=== PATIENT | female | born 1955 | race Caucasian/White ===

== ENCOUNTER → 2018-02-09 13:02 | Outpatient (CLI) | payer BC, SELFPAY ==
[2018-02-09 14:36] LABS: Absolute Lymphocyte Count 2.23 X10^3/ul (0.83-4.51); Absolute Neutrophil Count 4.4 X10^3/uL (2.0-7.7); Basophil# 0.05 X10^3/uL; Basophil% 0.7 % (0-1); Eosinophil# 0.08 X10^3/uL; Eosinophils% 1.1 % (0-5); Hematocrit 41.6 % (37-47); Hemoglobin 13.5 g/dl (12.0-15.0); Lymphocyte # 2.23 X10^3/ul (4.0); Lymphocyte % 30.2 % (19-41); Mean Corp Hgb Conc 32.5 g/gl (32-36); Mean Corpuscular Hgb 31.8 pg (27.0-32.0); Mean Corpuscular Volume 97.9 fL (81-99); Mean Platelet Vol. 12.1 fl (6.2-12.0); Monocyte# 0.58 X10^3/uL; Monocyte% 7.9 % (0-10); Neutrophil # 4.43 X10^3/uL (2.7-7.7); Platelet Count 230 K/mm3 (150-450); RBC Distribution Width CV 12.4 % (11.6-14.6); RBC Distribution Width SD 43.5 fl (35.1-43.9); Red Blood Count 4.25 M/mm3 (4.2-5.4); White Blood Count 7.4 K/mm3 (4.4-11.0)
[2018-02-09 14:39] LABS: POSITIVE COUNT NO; POSITIVE DIFFERENTIAL NO; POSITIVE MORPHOLOGY NO
[2018-02-09 14:50] LABS: ALB/GLOB Ratio 1.1 RATIO (0.9-2.4); AST(SGOT) 37 U/L (15-37); Alanine Aminotransfer ALT/SGPT 44 U/L (13-56); Alkaline Phosphatase 88 U/L (45-117); Anion Gap 10 (5-15); BUN 24 mg/dL (7-18); BUN/Creat Ratio 26.8 RATIO (10-20); Calcium,Total 8.9 mg/dL (8.5-10.1); Chloride 100 mmol/L (98-107); EST Glomerular Filtration Rate 68 mL/min (>60); Est Glom Filt Rate - Afr Amer 82 mL/min (>60); Globulin 3.6 g/dL (2.2-4.2); Glucose 90 mg/dL (74-106); Potassium 4.1 mmol/L (3.5-5.1); Protein, Total 7.6 g/dL (6.4-8.2); Sodium Level 137 mmol/L (136-145); Thyroid Stim Hormone (TSH) 1.88 uIU/mL (0.358-3.74)
[2018-02-10 09:22] LABS: Hep C Antibodies <0.1 s/co ratio (0.0-0.9)
== END ==
PROVIDERS: Family Provider Family Medicine Geriatric Medicine; PCP Family Medicine Geriatric Medicine; Visit Provider Family Medicine Geriatric Medicine
DX: R53.83 Other fatigue (principal); Z13.89 Encounter for screening for other disorder
CPT/HCPCS: 36415; 80053; 84443; 85025; 86803

== ENCOUNTER → 2018-08-13 09:24 | Outpatient (CLI) | payer BC, SELFPAY ==
[2018-08-13 12:28] LABS: Absolute Lymphocyte Count 2.15 X10^3/ul (0.83-4.51); Absolute Neutrophil Count 3.6 X10^3/uL (2.0-7.7); Basophil# 0.06 X10^3/uL; Basophil% 0.9 % (0-1); Eosinophil# 0.13 X10^3/uL; Hematocrit 41.4 % (37-47); Hemoglobin 13.4 g/dl (12.0-15.0); Lymphocyte # 2.15 X10^3/ul (4.0); Lymphocyte % 33.8 % (19-41); Mean Corp Hgb Conc 32.4 g/gl (32-36); Mean Corpuscular Hgb 32.4 pg (27.0-32.0); Mean Platelet Vol. 11.9 fl (6.2-12.0); Monocyte# 0.43 X10^3/uL; Monocyte% 6.8 % (0-10); Neutrophil # 3.58 X10^3/uL (2.7-7.7); Neutrophil % 56.3 % (47-70); Platelet Count 221 K/mm3 (150-450); RBC Distribution Width CV 12.4 % (11.6-14.6); RBC Distribution Width SD 44.9 fl (35.1-43.9); Red Blood Count 4.14 M/mm3 (4.2-5.4); White Blood Count 6.4 K/mm3 (4.4-11.0)
[2018-08-13 12:34] LABS: POSITIVE COUNT NO; POSITIVE DIFFERENTIAL NO; POSITIVE MORPHOLOGY NO
[2018-08-13 12:50] LABS: ALB/GLOB Ratio 1.1 RATIO (0.9-2.4); AST(SGOT) 35 U/L (15-37); Alanine Aminotransfer ALT/SGPT 52 U/L (13-56); Albumin, Serum 3.9 g/dL (3.2-5.0); Alkaline Phosphatase 83 U/L (45-117); Anion Gap 11 (5-15); BUN 21 mg/dL (7-18); Calcium,Total 8.7 mg/dL (8.5-10.1); Chloride 103 mmol/L (98-107); Creatinine, Serum 0.95 mg/dL (0.55-1.02); EST Glomerular Filtration Rate 63 mL/min (>60); Est Glom Filt Rate - Afr Amer 76 mL/min (>60); Globulin 3.5 g/dL (2.2-4.2); Glucose 89 mg/dL (74-106); Potassium 4.4 mmol/L (3.5-5.1); Protein, Total 7.4 g/dL (6.4-8.2); Sodium Level 140 mmol/L (136-145); Thyroid Stim Hormone (TSH) 1.51 uIU/mL (0.358-3.74)
== END ==
PROVIDERS: Family Provider Family Medicine Geriatric Medicine; PCP Family Medicine Geriatric Medicine; Visit Provider Family Medicine Geriatric Medicine
DX: I10 Essential (primary) hypertension (principal)
CPT/HCPCS: 36415; 80053; 84443; 85025

== ENCOUNTER → 2019-02-23 | Outpatient (CLI) | payer BC, SELFPAY ==
[2019-02-23 12:53] LABS: Absolute Neutrophil Count 4.1 X10^3/uL (2.0-7.7); Basophil# 0.03 X10^3/uL; Basophil% 0.4 % (0-1); Eosinophil# 0.09 X10^3/uL; Eosinophils% 1.3 % (0-5); Hematocrit 41.8 % (37-47); Hemoglobin 13.7 g/dl (12.0-15.0); Lymphocyte % 32.9 % (19-41); Mean Corp Hgb Conc 32.8 g/gl (32-36); Mean Corpuscular Hgb 32.6 pg (27.0-32.0); Mean Corpuscular Volume 99.5 fL (81-99); Mean Platelet Vol. 11.5 fl (6.2-12.0); Monocyte# 0.42 X10^3/uL; Neutrophil # 4.14 X10^3/uL (2.7-7.7); Neutrophil % 59.3 % (47-70); Platelet Count 245 K/mm3 (150-450); RBC Distribution Width CV 12.7 % (11.6-14.6); RBC Distribution Width SD 46.4 fl (35.1-43.9)
[2019-02-23 13:00] LABS: POSITIVE COUNT NO; POSITIVE DIFFERENTIAL NO; POSITIVE MORPHOLOGY NO
[2019-02-23 13:07] LABS: ALB/GLOB Ratio 1.1 RATIO (0.9-2.4); AST(SGOT) 35 U/L (15-37); Alanine Aminotransfer ALT/SGPT 42 U/L (13-56); Alkaline Phosphatase 92 U/L (45-117); Anion Gap 8 (5-15); BUN 25 mg/dL (7-18); BUN/Creat Ratio 29.1 RATIO (10-20); Chloride 102 mmol/L (98-107); Creatinine, Serum 0.86 mg/dL (0.55-1.02); EST Glomerular Filtration Rate 71 mL/min (>60); Est Glom Filt Rate - Afr Amer 86 mL/min (>60); Globulin 3.5 g/dL (2.2-4.2); Glucose 88 mg/dL (74-106); Potassium 4.3 mmol/L (3.5-5.1); Protein, Total 7.5 g/dL (6.4-8.2); Sodium Level 137 mmol/L (136-145); Thyroid Stim Hormone (TSH) 1.31 uIU/mL (0.358-3.74)
== END | disposition home or self-care (01) ==
LOC: POLAB3 08:53
PROVIDERS: Family Provider Family Medicine Geriatric Medicine; PCP Family Medicine Geriatric Medicine; Visit Provider Family Medicine Geriatric Medicine
DX: R53.83 Other fatigue (principal)
CPT/HCPCS: 36415; 80053; 84443; 85025

== ENCOUNTER → 2019-08-24 10:58 | Outpatient (CLI) | payer BC, SELFPAY ==
[2019-08-24 12:26] LABS: Absolute Lymphocyte Count 2.36 X10^3/uL (0.83-4.51); Absolute Neutrophil Count 4.8 X10^3/uL (2.0-7.7); Basophil# 0.07 X10^3/uL; Basophil% 0.9 % (0-1); Eosinophil# 0.07 X10^3/uL; Eosinophils% 0.9 % (0-5); Hematocrit 43.4 % (37-47); Hemoglobin 14.2 g/dL (12.0-15.0); Lymphocyte # 2.36 X10^3/ul (4.0); Lymphocyte % 29.5 % (19-41); Mean Corp Hgb Conc 32.7 g/dL (32-36); Mean Corpuscular Hgb 33.3 pg (27.0-32.0); Mean Corpuscular Volume 101.6 fL (81-99); Mean Platelet Vol. 11.6 fl (6.2-12.0); Monocyte# 0.65 X10^3/uL; Monocyte% 8.1 % (0-10); NRBC Flagged by Analyzer 0 % (0-5); Neutrophil # 4.81 X10^3/uL (2.7-7.7); Neutrophil % 60.2 % (47-70); Platelet Count 253 K/mm3 (150-450); RBC Distribution Width SD 44.7 fl (35.1-43.9); Red Blood Count 4.27 M/mm3 (4.2-5.4)
[2019-08-24 12:48] LABS: ALB/GLOB Ratio 1.1 RATIO (0.9-2.4); AST(SGOT) 32 U/L (15-37); Alanine Aminotransfer ALT/SGPT 40 U/L (13-56); Albumin, Serum 4.1 g/dL (3.2-5.0); Alkaline Phosphatase 101 U/L (45-117); Anion Gap 9 (5-15); BUN 22 mg/dL (7-18); BUN/Creat Ratio 23.7 RATIO (10-20); Calcium,Total 9.3 mg/dL (8.5-10.1); Chloride 100 mmol/L (98-107); Creatinine, Serum 0.93 mg/dL (0.55-1.02); EST Glomerular Filtration Rate 65 mL/min (>60); Est Glom Filt Rate - Afr Amer 78 mL/min (>60); Globulin 3.8 g/dL (2.2-4.2); Glucose 94 mg/dL (74-106); Potassium 4.5 mmol/L (3.5-5.1); Protein, Total 7.9 g/dL (6.4-8.2); Sodium Level 137 mmol/L (136-145); Thyroid Stim Hormone (TSH) 1.28 uIU/mL (0.358-3.74)
[2019-08-24 12:49] LABS: Vitamin D,25 Hydroxy 36.6 ng/mL (29.95-100.01)
== END ==
PROVIDERS: Family Provider Family Medicine Geriatric Medicine; PCP Family Medicine Geriatric Medicine; Visit Provider Family Medicine Geriatric Medicine
DX: E55.9 Vitamin D deficiency, unspecified (principal); I10 Essential (primary) hypertension
CPT/HCPCS: 36415; 80053; 82306; 84443; 85025

== ENCOUNTER → 2019-10-04 16:13 | Outpatient (CLI) | payer BC, SELFPAY | PROVIDERS: Family Provider Family Medicine Geriatric Medicine; PCP Family Medicine Geriatric Medicine; Referring Provider Family Medicine Geriatric Medicine; Visit Provider Family Medicine Geriatric Medicine | DX: R50.9 Fever, unspecified (principal) | CPT/HCPCS: 87633 ==

== ENCOUNTER → 2020-02-25 | Outpatient (CLI) | payer BC, SELFPAY ==
[2020-02-25 12:50] LABS: Absolute Lymphocyte Count 1.65 X10^3/uL (0.83-4.51); Absolute Neutrophil Count 3.7 X10^3/uL (2.0-7.7); Basophil# 0.05 X10^3/uL; Basophil% 0.8 % (0-1); Eosinophils% 1.7 % (0-5); Hematocrit 43.3 % (37-47); Lymphocyte # 1.65 X10^3/ul (4.0); Lymphocyte % 27.7 % (19-41); Mean Corp Hgb Conc 32.3 g/dL (32-36); Mean Corpuscular Hgb 32.9 pg (27.0-32.0); Mean Corpuscular Volume 101.9 fL (81-99); Mean Platelet Vol. 11.8 fl (6.2-12.0); Monocyte# 0.44 X10^3/uL; Monocyte% 7.4 % (0-10); NRBC Flagged by Analyzer 0 % (0-5); Neutrophil # 3.69 X10^3/uL (2.7-7.7); Neutrophil % 61.9 % (47-70); Platelet Count 238 K/mm3 (150-450); RBC Distribution Width CV 11.9 % (11.6-14.6); RBC Distribution Width SD 44.7 fl (35.1-43.9); Red Blood Count 4.25 M/mm3 (4.2-5.4)
[2020-02-25 13:48] LABS: ALB/GLOB Ratio 1.2 RATIO (0.9-2.4); AST(SGOT) 32 U/L (15-37); Alanine Aminotransfer ALT/SGPT 48 U/L (13-56); Albumin, Serum 4.1 g/dL (3.2-5.0); Alkaline Phosphatase 92 U/L (45-117); Anion Gap 8 (5-15); BUN 16 mg/dL (7-18); BUN/Creat Ratio 18.3 RATIO (10-20); Calcium,Total 8.9 mg/dL (8.5-10.1); Chloride 107 mmol/L (98-107); Creatinine, Serum 0.87 mg/dL (0.55-1.02); EST Glomerular Filtration Rate 69 mL/min (>60); Est Glom Filt Rate - Afr Amer 84 mL/min (>60); Globulin 3.4 g/dL (2.2-4.2); Glucose 100 mg/dL (74-106); Potassium 4.2 mmol/L (3.5-5.1); Protein, Total 7.5 g/dL (6.4-8.2); Sodium Level 140 mmol/L (136-145); Thyroid Stim Hormone (TSH) 1.29 uIU/mL (0.358-3.74)
[2020-02-25 17:09] LABS: Vitamin D,25 Hydroxy 38.6 ng/mL
== END | disposition home or self-care (01) ==
LOC: POLAB3 09:27
PROVIDERS: PCP Family Medicine Geriatric Medicine; Visit Provider Family Medicine Geriatric Medicine
DX: E55.9 Vitamin D deficiency, unspecified (principal); R53.83 Other fatigue
CPT/HCPCS: 36415; 80053; 82306; 84443; 85025

== ENCOUNTER → 2020-08-28 09:01 | Outpatient (CLI) | payer MEDICARE, SELFPAY ==
[2020-08-28 12:05] LABS: Absolute Lymphocyte Count 2.88 X10^3/uL (0.83-4.51); Absolute Neutrophil Count 4.8 X10^3/uL (2.0-7.7); Basophil# 0.06 X10^3/uL; Basophil% 0.7 % (0-1); Eosinophil# 0.13 X10^3/uL; Eosinophils% 1.5 % (0-5); Hematocrit 42.4 % (37-47); Hemoglobin 13.9 g/dL (12.0-15.0); Lymphocyte # 2.88 X10^3/ul (4.0); Lymphocyte % 33.7 % (19-41); Mean Corp Hgb Conc 32.8 g/dL (32-36); Mean Corpuscular Hgb 33.9 pg (27.0-32.0); Mean Corpuscular Volume 103.4 fL (81-99); Monocyte# 0.65 X10^3/uL; Monocyte% 7.6 % (0-10); NRBC Flagged by Analyzer 0 % (0-5); Neutrophil # 4.78 X10^3/uL (2.7-7.7); Neutrophil % 55.9 % (47-70); Platelet Count 251 K/mm3 (150-450); RBC Distribution Width CV 12.1 % (11.6-14.6); RBC Distribution Width SD 46.3 fl (35.1-43.9); White Blood Count 8.6 K/mm3 (4.4-11.0)
[2020-08-28 12:09] LABS: Vitamin D,25 Hydroxy 31.4 ng/mL
[2020-08-28 12:20] LABS: ALB/GLOB Ratio 1.2 RATIO (0.9-2.4); AST(SGOT) 30 U/L (15-37); Alanine Aminotransfer ALT/SGPT 44 U/L (13-56); Albumin, Serum 4.2 g/dL (3.2-5.0); Alkaline Phosphatase 102 U/L (45-117); Anion Gap 8 (5-15); BUN 24 mg/dL (7-18); BUN/Creat Ratio 26.3 RATIO (10-20); Calcium,Total 9.4 mg/dL (8.5-10.1); Chloride 103 mmol/L (98-107); Creatinine, Serum 0.91 mg/dL (0.55-1.02); EST Glomerular Filtration Rate 66 mL/min (>60); Est Glom Filt Rate - Afr Amer 80 mL/min (>60); Globulin 3.4 g/dL (2.2-4.2); Glucose 109 mg/dL (74-106); Potassium 4.1 mmol/L (3.5-5.1); Protein, Total 7.6 g/dL (6.4-8.2); Sodium Level 137 mmol/L (136-145)
== END ==
PROVIDERS: PCP Family Medicine Geriatric Medicine; Visit Provider Family Medicine Geriatric Medicine
DX: E55.9 Vitamin D deficiency, unspecified (principal); R53.83 Other fatigue
CPT/HCPCS: 36415; 80053; 82306; 84443; 85025

== ENCOUNTER → 2021-03-01 09:02 | Outpatient (CLI) | payer MEDICARE, SELFPAY ==
[2021-03-01 12:23] LABS: Absolute Lymphocyte Count 2.45 X10^3/uL (0.83-4.51); Absolute Neutrophil Count 4.8 X10^3/uL (2.0-7.7); Basophil# 0.05 X10^3/uL; Basophil% 0.6 % (0-1); Eosinophil# 0.13 X10^3/uL; Eosinophils% 1.6 % (0-5); Hemoglobin 13.4 g/dL (12.0-15.0); Lymphocyte # 2.45 X10^3/ul (0.83-4.51); Lymphocyte % 30.3 % (19-41); Mean Corp Hgb Conc 32.7 g/dL (32-36); Mean Platelet Vol. 11.9 fl (6.2-12.0); Monocyte# 0.66 X10^3/uL; Monocyte% 8.2 % (0-10); NRBC Flagged by Analyzer 0 % (0-5); Neutrophil # 4.78 X10^3/uL (2.7-7.7); Neutrophil % 59.1 % (47-70); Platelet Count 257 K/mm3 (150-450); RBC Distribution Width CV 12.2 % (11.6-14.6); RBC Distribution Width SD 46.1 fl (35.1-43.9); Red Blood Count 4.06 M/mm3 (4.2-5.4); White Blood Count 8.1 K/mm3 (4.4-11.0)
[2021-03-01 12:40] LABS: Vitamin D,25 Hydroxy 32.7 ng/mL
[2021-03-01 13:04] LABS: ALB/GLOB Ratio 1.2 RATIO (0.9-2.4); AST(SGOT) 48 U/L (15-37); Alanine Aminotransfer ALT/SGPT 60 U/L (13-56); Alkaline Phosphatase 100 U/L (45-117); Anion Gap 9 (5-15); BUN 21 mg/dL (7-18); BUN/Creat Ratio 21.1 RATIO (10-20); Calcium,Total 8.6 mg/dL (8.5-10.1); Chloride 103 mmol/L (98-107); EST Glomerular Filtration Rate 59 mL/min (>60); Est Glom Filt Rate - Afr Amer 72 mL/min (>60); Globulin 3.3 g/dL (2.2-4.2); Glucose 102 mg/dL (74-106); Potassium 4.5 mmol/L (3.5-5.1); Protein, Total 7.3 g/dL (6.4-8.2); Sodium Level 139 mmol/L (136-145); Thyroid Stim Hormone (TSH) 1.57 uIU/mL (0.358-3.74)
== END ==
PROVIDERS: PCP Family Medicine Geriatric Medicine; Visit Provider Family Medicine Geriatric Medicine
DX: E55.9 Vitamin D deficiency, unspecified (principal); I10 Essential (primary) hypertension
CPT/HCPCS: 36415; 80053; 82306; 84443; 85025

== ENCOUNTER → 2021-03-07 08:31 | Outpatient (CLI) | payer MEDICARE, SELFPAY ==
--- NOTE | 2021-03-07 08:42 | US_ITS ---
STUDY: ABDOMINAL ULTRASOUND - RIGHT UPPER QUADRANT REASON FOR VISIT: Female, 65 years old LIVER ENZYMES ABNORMAL TECHNIQUE: Ultrasound evaluation of the right upper quadrant was performed with real-time and static weber-scale imaging. TECHNICAL QUALITY: Adequate. COMPARISON: None. FINDINGS: Liver: The liver measures 15.9 cm. There is increased echogenicity consistent with fatty infiltration. The bile ducts are within normal limits. There is hepatic color flow. The direction of portal flow is hepatopetal. There is no demonstrated mass lesion. Gallbladder: Normal distended gallbladder. The gallbladder wall measures 2.4 mm. There is a negative sonographic Ceron''s sign. There is no pericholecystic fluid. There are no gallstones. Common Bile Duct (C.B.D.): The common bile duct measures 3.1 mm. Pancreas: Normal size of the head, body and tail of the pancreas. There is increased echogenicity of the pancreas. There is no demonstrated pancreatic mass or cyst. Right Kidney: Normal size of the right kidney. The right kidney measures 9 cm x 4.3 cm x 5.1 cm. Normal renal cortex. The right cortex measures 1.7 cm. There is no demonstrated renal mass or cyst. There is no right hydronephrosis. US/Abdomen Limited IMPRESSION: Fatty infiltration of the liver. Electronically Signed: Bernardino Patricio MD at 13:29 EDT , Service support ,
[2021-03-08 05:07] LABS: HEPATITIS B SURFACE AG Negative (Negative); Hepatitis A AB, Total Positive (Negative); Hepatitis A IgM Antibody Negative (Negative); Hepatitis B Core AB IgM Negative (Negative); Hepatitis B Core Ab Total Negative (Negative); Hepatitis C Ab <0.1 s/co ratio (0.0-0.9)
[2021-03-08 08:44] LABS: Hep B Surface Antibodies Non Reactive (.)
== END ==
PROVIDERS: PCP Family Medicine Geriatric Medicine; Referring Provider Family Medicine Geriatric Medicine; Visit Provider Family Medicine Geriatric Medicine
DX: R74.8 Abnormal levels of other serum enzymes (principal)
CPT/HCPCS: 36415; 76705; 86704; 86705; 86706; 86708; 86709; 86803; 87340

== ENCOUNTER → 2021-03-21 07:55 | Outpatient (CLI) | payer MEDICARE, SELFPAY ==
--- NOTE | 2021-03-21 07:58 | US_ITS ---
STUDY: ABDOMINAL ULTRASOUND - ELASTOGRAPHY REASON FOR VISIT: Female, 65 years old. Fatty infiltration of the liver. TECHNIQUE: Liver stiffness measurements were obtained on a Xylo RS 85 ultrasound machine using a CA 1-7 probe following the SRU guidelines. 3 measurements were obtained using a 2-D-SWE method. The IQR/M was 11% suggesting a quality data set. TECHNICAL QUALITY: Adequate. COMPARISON: Comparison is made with prior examination of 03/07/2021. FINDINGS: Liver: There is evidence of fatty infiltration of the liver. Median liver stiffness measured 5.6 kPa. US/Elastography Parenchyma/Organ IMPRESSION: Liver stiffness measures 5.6 kPa compatible with F1 Metavir score. Electronically Signed: Bernardino Patricio MD at 11:04 EDT , Service support ,
== END ==
PROVIDERS: PCP Family Medicine Geriatric Medicine; Referring Provider Family Medicine Geriatric Medicine; Visit Provider Family Medicine Geriatric Medicine
DX: K76.0 Fatty (change of) liver, not elsewhere classified (principal)
CPT/HCPCS: 76981

== ENCOUNTER → 2021-04-24 08:50 | Outpatient (CLI) | payer MEDICARE, SELFPAY ==
--- NOTE | 2021-04-24 09:07 | BD_ITS ---
STUDY: DUAL ENERGY X-RAY ABSORPTIOMETRY / DXA REASON FOR EXAM: Female, 65 years old. [id number] TECHNIQUE: Bone Mineral Density (BMD) measurements of lumbar spine and bilateral hips were obtained. COMPARISON: None. FINDINGS: Lumbar Spine (L1-L4): g/cm2 (0.986) / T-score (-0.2) / Z-score (1.5) Findings are suggestive of normal bone density with a low fracture risk. Left Femur Total: g/cm2 (0.855) / T-score (-0.7) / Z-score (0.6) Left Femoral Neck: g/cm2 (0.686) / T-score (-1.5) / Z-score (0.1) Right Femur Total: g/cm2 (0.894) / T-score (-0.4) / Z-score (0.9) Right Femoral Neck: g/cm2 (0.685) / T-score (-1.5) / Z-score (0.1) BD/Dexa Bone Density Study IMPRESSION: The patient is considered osteopenic as outlined below according to World Bennie Organization (WHO) criteria with a low fracture risk. Reference Information: The T-score is the number of standard deviations above or below the standard which is normal for young adults at their peak bone mineral density. The World Health Organization (WHO) interprets the T-scores as follows: Above -1 Normal bone density Between -1 and -2.5 Osteopenia Equal to / or below -2.5 Osteoporosis As a practical clinical guideline, osteopenia may be graded as follows: Mild -1 through -1.5 Moderate -1.6 through -2.0 Severe -2.1 through -2.4 The Z-score is the number of standard deviations above or below age-matched controls. A Z-score of less than -1.5 would be considered abnormal. References: 1. NIH Osteoporosis and Related Bone Diseases www osteo.org 2. International Society for Clinical Densitometry www iscd.org 3. National Osteoporosis Foundation www nof.org Electronically Signed: Bernardino Patricio MD at 11:51 EDT , Service support ,
== END ==
PROVIDERS: PCP Family Medicine Geriatric Medicine; Referring Provider Family Medicine Geriatric Medicine; Visit Provider Family Medicine Geriatric Medicine
DX: Z78.0 Asymptomatic menopausal state (principal)
CPT/HCPCS: 77080

== ENCOUNTER → 2021-08-30 09:52 | Outpatient (CLI) | payer MEDICARE, SELFPAY ==
[2021-08-30 12:38] LABS: Absolute Lymphocyte Count 1.91 X10^3/uL (0.83-4.51); Absolute Neutrophil Count 4.4 X10^3/uL (2.0-7.7); Basophil# 0.07 X10^3/uL; Eosinophil# 0.11 X10^3/uL; Eosinophils% 1.6 % (0-5); Hematocrit 41.4 % (37-47); Hemoglobin 13.7 g/dL (12.0-15.0); Lymphocyte # 1.91 X10^3/ul (0.83-4.51); Lymphocyte % 27.1 % (19-41); Mean Corp Hgb Conc 33.1 g/dL (32-36); Mean Corpuscular Hgb 33.1 pg (27.0-32.0); Mean Platelet Vol. 11.7 fl (6.2-12.0); Monocyte% 7.1 % (0-10); NRBC Flagged by Analyzer 0 % (0-5); Neutrophil # 4.44 X10^3/uL (2.7-7.7); Neutrophil % 62.9 % (47-70); Platelet Count 240 K/mm3 (150-450); RBC Distribution Width CV 12.5 % (11.6-14.6); RBC Distribution Width SD 46.4 fl (35.1-43.9); Red Blood Count 4.14 M/mm3 (4.2-5.4); White Blood Count 7.1 K/mm3 (4.4-11.0)
[2021-08-30 12:58] LABS: Vitamin D,25 Hydroxy 29.4 ng/mL
[2021-08-30 13:08] LABS: ALB/GLOB Ratio 1.1 RATIO (0.9-2.4); AST(SGOT) 31 U/L (15-37); Alanine Aminotransfer ALT/SGPT 41 U/L (13-56); Albumin, Serum 3.9 g/dL (3.2-5.0); Alkaline Phosphatase 92 U/L (45-117); Anion Gap 9 (5-15); BUN 21 mg/dL (7-18); BUN/Creat Ratio 24.2 RATIO (10-20); Calcium,Total 9.2 mg/dL (8.5-10.1); Chloride 104 mmol/L (98-107); Creatinine, Serum 0.87 mg/dL (0.55-1.02); EST Glomerular Filtration Rate 70 mL/min (>60); Est Glom Filt Rate - Afr Amer 84 mL/min (>60); Globulin 3.5 g/dL (2.2-4.2); Glucose 106 mg/dL (74-106); Potassium 4.1 mmol/L (3.5-5.1); Protein, Total 7.4 g/dL (6.4-8.2); Sodium Level 136 mmol/L (136-145); Thyroid Stim Hormone (TSH) 1.58 uIU/mL (0.358-3.74)
== END ==
PROVIDERS: PCP Family Medicine Geriatric Medicine; Visit Provider Family Medicine Geriatric Medicine
DX: E55.9 Vitamin D deficiency, unspecified (principal); R53.83 Other fatigue
CPT/HCPCS: 36415; 80053; 82306; 84443; 85025

== ENCOUNTER → 2022-03-04 | Outpatient (CLI) | payer MEDICARE, SELFPAY ==
[2022-03-04 12:40] LABS: Absolute Lymphocyte Count 1.77 X10^3/uL (0.83-4.51); Absolute Neutrophil Count 3.5 X10^3/uL (2.0-7.7); Basophil# 0.05 X10^3/uL; Basophil% 0.8 % (0-1); Eosinophil# 0.06 X10^3/uL; Hemoglobin 13.6 g/dL (12.0-15.0); Lymphocyte # 1.77 X10^3/ul (0.83-4.51); Lymphocyte % 29.9 % (19-41); Mean Corp Hgb Conc 32.4 g/dL (32-36); Mean Corpuscular Hgb 33.1 pg (27.0-32.0); Mean Corpuscular Volume 102.2 fL (81-99); Mean Platelet Vol. 11.5 fl (6.2-12.0); Monocyte# 0.49 X10^3/uL; Monocyte% 8.3 % (0-10); NRBC Flagged by Analyzer 0 % (0-5); Neutrophil # 3.53 X10^3/uL (2.7-7.7); Neutrophil % 59.8 % (47-70); Platelet Count 226 K/mm3 (150-450); RBC Distribution Width CV 12.1 % (11.6-14.6); RBC Distribution Width SD 45.7 fl (35.1-43.9); Red Blood Count 4.11 M/mm3 (4.2-5.4); White Blood Count 5.9 K/mm3 (4.4-11.0)
[2022-03-04 13:12] LABS: Vitamin D,25 Hydroxy 35.8 ng/mL
[2022-03-04 13:18] LABS: ALB/GLOB Ratio 1.1 RATIO (0.9-2.4); AST(SGOT) 31 U/L (15-37); Alanine Aminotransfer ALT/SGPT 43 U/L (13-56); Alkaline Phosphatase 94 U/L (45-117); Anion Gap 9 (5-15); BUN 17 mg/dL (7-18); BUN/Creat Ratio 19.6 RATIO (10-20); Calcium,Total 9.3 mg/dL (8.5-10.1); Chloride 103 mmol/L (98-107); Creatinine, Serum 0.87 mg/dL (0.55-1.02); EST Glomerular Filtration Rate 69 mL/min (>60); Est Glom Filt Rate - Afr Amer 84 mL/min (>60); Globulin 3.5 g/dL (2.2-4.2); Glucose 110 mg/dL (74-106); Protein, Total 7.5 g/dL (6.4-8.2); Sodium Level 138 mmol/L (136-145); Thyroid Stim Hormone (TSH) 1.76 uIU/mL (0.358-3.74)
== END | disposition home or self-care (01) ==
LOC: LAB 12:08
PROVIDERS: PCP Family Medicine Geriatric Medicine; Referring Provider Family Medicine Geriatric Medicine; Visit Provider Family Medicine Geriatric Medicine
DX: I10 Essential (primary) hypertension (principal); E55.9 Vitamin D deficiency, unspecified
CPT/HCPCS: 36415; 80053; 82306; 84443; 85025

== ENCOUNTER → 2022-09-02 | Outpatient (CLI) | payer MEDICARE, SELFPAY ==
[2022-09-02 13:18] LABS: Absolute Lymphocyte Count 2.64 X10^3/uL (0.83-4.51); Absolute Neutrophil Count 3.9 X10^3/uL (2.0-7.7); Basophil# 0.05 X10^3/uL; Basophil% 0.7 % (0-1); Eosinophil# 0.13 X10^3/uL; Eosinophils% 1.8 % (0-5); Hematocrit 42.3 % (37-47); Hemoglobin 13.9 g/dL (12.0-15.0); Lymphocyte # 2.64 X10^3/ul (0.83-4.51); Lymphocyte % 36.3 % (19-41); Mean Corp Hgb Conc 32.9 g/dL (32-36); Mean Corpuscular Hgb 33.7 pg (27.0-32.0); Mean Corpuscular Volume 102.4 fL (81-99); Monocyte# 0.52 X10^3/uL; Monocyte% 7.1 % (0-10); NRBC Flagged by Analyzer 0 % (0-5); Neutrophil # 3.91 X10^3/uL (2.7-7.7); Neutrophil % 53.7 % (47-70); Platelet Count 245 K/mm3 (150-450); RBC Distribution Width SD 45.4 fl (35.1-43.9); Red Blood Count 4.13 M/mm3 (4.2-5.4); White Blood Count 7.3 K/mm3 (4.4-11.0)
[2022-09-02 13:44] LABS: Vitamin D,25 Hydroxy 35.9 ng/mL
[2022-09-02 13:55] LABS: ALB/GLOB Ratio 1.1 RATIO (0.9-2.4); AST(SGOT) 32 U/L (15-37); Alanine Aminotransfer ALT/SGPT 49 U/L (13-56); Alkaline Phosphatase 88 U/L (45-117); Anion Gap 9 (5-15); BUN 29 mg/dL (7-18); BUN/Creat Ratio 34.8 RATIO (10-20); Calcium,Total 9.2 mg/dL (8.5-10.1); Chloride 102 mmol/L (98-107); Creatinine, Serum 0.83 mg/dL (0.55-1.02); EST Glomerular Filtration Rate 73 mL/min (>60); Est Glom Filt Rate - Afr Amer 88 mL/min (>60); Globulin 3.5 g/dL (2.2-4.2); Glucose 100 mg/dL (74-106); Potassium 3.8 mmol/L (3.5-5.1); Protein, Total 7.5 g/dL (6.4-8.2); Sodium Level 139 mmol/L (136-145); Thyroid Stim Hormone (TSH) 2.53 uIU/mL (0.358-3.74)
== END | disposition home or self-care (01) ==
LOC: POLAB3 10:00
PROVIDERS: PCP Family Medicine Geriatric Medicine; Visit Provider Family Medicine Geriatric Medicine
DX: E55.9 Vitamin D deficiency, unspecified (principal); R53.83 Other fatigue
CPT/HCPCS: 36415; 80053; 82306; 84443; 85025

== ENCOUNTER → 2023-03-10 | Outpatient (CLI) | payer MEDICARE, SELFPAY ==
[2023-03-10 14:22] LABS: Absolute Lymphocyte Count 1.57 X10^3/uL (0.83-4.51); Absolute Neutrophil Count 4.3 X10^3/uL (2.0-7.7); Basophil# 0.05 X10^3/uL; Basophil% 0.8 % (0-1); Eosinophil# 0.06 X10^3/uL; Eosinophils% 0.9 % (0-5); Hematocrit 43.4 % (37-47); Hemoglobin 14.2 g/dL (12.0-15.0); Lymphocyte # 1.57 X10^3/ul (0.83-4.51); Lymphocyte % 24.3 % (19-41); Mean Corp Hgb Conc 32.7 g/dL (32-36); Mean Corpuscular Hgb 34.1 pg (27.0-32.0); Mean Corpuscular Volume 104.1 fL (81-99); Mean Platelet Vol. 11.3 fl (6.2-12.0); Monocyte# 0.48 X10^3/uL; Monocyte% 7.4 % (0-10); NRBC Flagged by Analyzer 0 % (0-5); Neutrophil # 4.29 X10^3/uL (2.7-7.7); Neutrophil % 66.3 % (47-70); Platelet Count 238 K/mm3 (150-450); RBC Distribution Width CV 12.2 % (11.6-14.6); RBC Distribution Width SD 47.1 fl (35.1-43.9); Red Blood Count 4.17 M/mm3 (4.2-5.4); White Blood Count 6.5 K/mm3 (4.4-11.0)
[2023-03-10 14:48] LABS: Vitamin D,25 Hydroxy 41.9 ng/mL
[2023-03-10 14:56] LABS: AST(SGOT) 31 U/L (15-37); Alanine Aminotransfer ALT/SGPT 46 U/L (13-56); Albumin, Serum 3.8 g/dL (3.2-5.0); Alkaline Phosphatase 91 U/L (45-117); Anion Gap 6 (5-15); BUN 14 mg/dL (7-18); BUN/Creat Ratio 16.7 RATIO (10-20); Calcium,Total 9.1 mg/dL (8.5-10.1); Chloride 104 mmol/L (98-107); Creatinine, Serum 0.84 mg/dL (0.55-1.02); EST Glomerular Filtration Rate 72 mL/min (>60); Est Glom Filt Rate - Afr Amer 87 mL/min (>60); Globulin 3.7 g/dL (2.2-4.2); Glucose 129 mg/dL (74-106); Potassium 4.2 mmol/L (3.5-5.1); Protein, Total 7.5 g/dL (6.4-8.2); Sodium Level 138 mmol/L (136-145); Thyroid Stim Hormone (TSH) 2.12 uIU/mL (0.358-3.74)
== END | disposition home or self-care (01) ==
LOC: LAB 13:38
PROVIDERS: PCP Family Medicine Geriatric Medicine; Referring Provider Family Medicine Geriatric Medicine; Visit Provider Family Medicine Geriatric Medicine
DX: R53.83 Other fatigue (principal); E55.9 Vitamin D deficiency, unspecified
CPT/HCPCS: 36415; 80053; 82306; 84443; 85025

== ENCOUNTER → 2023-09-11 | Outpatient (CLI) | payer MEDICARE, SELFPAY ==
[2023-09-11 17:44] LABS: Absolute Lymphocyte Count 2.63 X10^3/uL (0.83-4.51); Absolute Neutrophil Count 3.6 X10^3/uL (2.0-7.7); Basophil# 0.07 X10^3/uL; Eosinophil# 0.11 X10^3/uL; Eosinophils% 1.6 % (0-5); Hematocrit 43.2 % (37-47); Hemoglobin 13.8 g/dL (12.0-15.0); Lymphocyte # 2.63 X10^3/ul (0.83-4.51); Lymphocyte % 37.8 % (19-41); Mean Corp Hgb Conc 31.9 g/dL (32-36); Mean Corpuscular Volume 103.3 fL (81-99); Mean Platelet Vol. 12.2 fl (6.2-12.0); Monocyte# 0.51 X10^3/uL; Monocyte% 7.3 % (0-10); NRBC Flagged by Analyzer 0 % (0-5); Neutrophil # 3.62 X10^3/uL (2.7-7.7); Neutrophil % 52.2 % (47-70); Platelet Count 245 K/mm3 (150-450); RBC Distribution Width CV 12.2 % (11.6-14.6); Red Blood Count 4.18 M/mm3 (4.2-5.4)
[2023-09-11 17:56] LABS: Vitamin D,25 Hydroxy 39.6 ng/mL
[2023-09-11 18:13] LABS: ALB/GLOB Ratio 1.2 RATIO (0.9-2.4); AST(SGOT) 42 U/L (15-37); Alanine Aminotransfer ALT/SGPT 51 U/L (13-56); Albumin, Serum 4.1 g/dL (3.2-5.0); Alkaline Phosphatase 93 U/L (45-117); Anion Gap 8 (5-15); BUN 21 mg/dL (7-18); BUN/Creat Ratio 21.1 RATIO (10-20); Calcium,Total 8.8 mg/dL (8.5-10.1); Chloride 106 mmol/L (98-107); Creatinine, Serum 0.99 mg/dL (0.55-1.02); EST Glomerular Filtration Rate 59 mL/min (>60); Est Glom Filt Rate - Afr Amer 71 mL/min (>60); Globulin 3.5 g/dL (2.2-4.2); Glucose 87 mg/dL (74-106); Potassium 4.5 mmol/L (3.5-5.1); Protein, Total 7.6 g/dL (6.4-8.2); Sodium Level 141 mmol/L (136-145); Thyroid Stim Hormone (TSH) 1.39 uIU/mL (0.358-3.74)
== END | disposition home or self-care (01) ==
LOC: POLAB3 13:14
PROVIDERS: PCP Family Medicine Geriatric Medicine; Visit Provider Family Medicine Geriatric Medicine
DX: R53.83 Other fatigue (principal); E55.9 Vitamin D deficiency, unspecified
CPT/HCPCS: 36415; 80053; 82306; 84443; 85025

== ENCOUNTER → 2024-04-14 | Outpatient (CLI) | payer MEDICARE, SELFPAY ==
--- NOTE | 2024-04-14 15:09 | RAD_ITS ---
STUDY: X-RAY - RIGHT CLAVICLE REASON FOR EXAM: Female, 68 years old. Hypertrophy of bone, right shoulder TECHNIQUE: 2 view(s) of the clavicle. COMPARISON: None. FINDINGS: Normal clavicle. There is degenerative arthrosis of the acromioclavicular joint without inferior osseous prominence. Normal visualized sternoclavicular articulation. Normal visualized pulmonary apex. 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 Electronically Signed: Reyes Roberts MD at 8:31 EDT ,
[2024-04-14 15:45] LABS: Absolute Neutrophil Count 4.4 X10^3/uL (2.0-7.7); Basophil# 0.05 X10^3/uL; Basophil% 0.7 % (0-1); Eosinophil# 0.04 X10^3/uL; Eosinophils% 0.5 % (0-5); Hematocrit 41.4 % (37-47); Hemoglobin 13.2 g/dL (12.0-15.0); Lymphocyte % 32.2 % (19-41); Mean Corp Hgb Conc 31.9 g/dL (32-36); Mean Corpuscular Hgb 32.2 pg (27.0-32.0); Mean Platelet Vol. 11.4 fl (6.2-12.0); Monocyte# 0.52 X10^3/uL; NRBC Flagged by Analyzer 0 % (0-5); Neutrophil # 4.43 X10^3/uL (2.7-7.7); Neutrophil % 59.3 % (47-70); Platelet Count 221 K/mm3 (150-450); RBC Distribution Width CV 12.3 % (11.6-14.6); RBC Distribution Width SD 46.1 fl (35.1-43.9); White Blood Count 7.5 K/mm3 (4.4-11.0)
[2024-04-14 16:17] LABS: Vitamin D,25 Hydroxy 45.6 ng/mL
[2024-04-14 16:26] LABS: AST(SGOT) 56 U/L (15-37); Alanine Aminotransfer ALT/SGPT 76 U/L (13-56); Albumin, Serum 3.8 g/dL (3.2-5.0); Alkaline Phosphatase 94 U/L (45-117); Anion Gap 6 (5-15); BUN 15 mg/dL (7-18); BUN/Creat Ratio 14.4 RATIO (10-20); Calcium,Total 8.8 mg/dL (8.5-10.1); Chloride 105 mmol/L (98-107); Creatinine, Serum 1.04 mg/dL (0.55-1.02); EST Glomerular Filtration Rate 56 mL/min (>60); Est Glom Filt Rate - Afr Amer 68 mL/min (>60); Globulin 3.8 g/dL (2.2-4.2); Glucose 109 mg/dL (74-106); Potassium 4.1 mmol/L (3.5-5.1); Protein, Total 7.6 g/dL (6.4-8.2); Sodium Level 140 mmol/L (136-145); Thyroid Stim Hormone (TSH) 1.38 uIU/mL (0.358-3.74)
== END | disposition home or self-care (01) ==
LOC: RAD 15:07
PROVIDERS: PCP Family Medicine Geriatric Medicine; Referring Provider Family Medicine Geriatric Medicine; Visit Provider Family Medicine Geriatric Medicine
DX: M89.311 Hypertrophy of bone, right shoulder (principal); R53.83 Other fatigue; E55.9 Vitamin D deficiency, unspecified
CPT/HCPCS: 36415; 73000; 80053; 82306; 84443; 85025

== ENCOUNTER → 2024-10-13 | Outpatient (CLI) | payer MEDICARE, SELFPAY ==
[2024-10-13 12:02] LABS: Absolute Lymphocyte Count 2.15 X10^3/uL (0.83-4.51); Absolute Neutrophil Count 3.2 X10^3/uL (2.0-7.7); Basophil# 0.07 X10^3/uL; Basophil% 1.1 % (0-1); Eosinophil# 0.12 X10^3/uL; Eosinophils% 1.9 % (0-5); Hematocrit 41.7 % (37-47); Hemoglobin 13.7 g/dL (12.0-15.0); Lymphocyte # 2.15 X10^3/ul (0.83-4.51); Lymphocyte % 34.5 % (19-41); Mean Corp Hgb Conc 32.9 g/dL (32-36); Mean Corpuscular Hgb 33.1 pg (27.0-32.0); Mean Corpuscular Volume 100.7 fL (81-99); Mean Platelet Vol. 11.2 fl (6.2-12.0); Monocyte% 9.6 % (0-10); NRBC Flagged by Analyzer 0 % (0-5); Neutrophil # 3.22 X10^3/uL (2.7-7.7); Neutrophil % 51.8 % (47-70); Platelet Count 203 K/mm3 (150-450); RBC Distribution Width CV 12.2 % (11.6-14.6); RBC Distribution Width SD 45.8 fl (35.1-43.9); Red Blood Count 4.14 M/mm3 (4.2-5.4); White Blood Count 6.2 K/mm3 (4.4-11.0)
[2024-10-13 13:32] LABS: ALB/GLOB Ratio 1.1 RATIO (0.9-2.4); AST(SGOT) 50 U/L (15-37); Alanine Aminotransfer ALT/SGPT 67 U/L (13-56); Alkaline Phosphatase 81 U/L (45-117); Anion Gap 9 (5-15); BUN 18 mg/dL (7-18); BUN/Creat Ratio 19.8 RATIO (10-20); Calcium,Total 8.9 mg/dL (8.5-10.1); Chloride 107 mmol/L (98-107); Creatinine, Serum 0.91 mg/dL (0.55-1.02); EST Glomerular Filtration Rate 65 mL/min (>60); Est Glom Filt Rate - Afr Amer 79 mL/min (>60); Globulin 3.5 g/dL (2.2-4.2); Glucose 90 mg/dL (74-106); Potassium 4.1 mmol/L (3.5-5.1); Protein, Total 7.5 g/dL (6.4-8.2); Sodium Level 139 mmol/L (136-145)
== END | disposition home or self-care (01) ==
LOC: POLAB3 11:42
PROVIDERS: PCP Family Medicine Geriatric Medicine; Visit Provider Family Medicine Geriatric Medicine
DX: E55.9 Vitamin D deficiency, unspecified (principal); R53.83 Other fatigue
CPT/HCPCS: 36415; 80053; 82306; 84443; 85025

== ENCOUNTER → 2024-10-19 | Outpatient (CLI) | payer MEDICARE, SELFPAY ==
[2024-10-21 05:07] LABS: HEPATITIS B SURFACE AG Negative (Negative); Hep C Antibodies Non Reactive (Non Reactive); Hepatitis A IgM Antibody Negative (Negative); Hepatitis B Core AB IgM Negative (Negative)
== END | disposition home or self-care (01) ==
LOC: LAB 15:14
PROVIDERS: PCP Family Medicine Geriatric Medicine; Referring Provider Family Medicine Geriatric Medicine; Visit Provider Family Medicine Geriatric Medicine
DX: E78.5 Hyperlipidemia, unspecified (principal); R74.8 Abnormal levels of other serum enzymes
CPT/HCPCS: 36415; 80074

== ENCOUNTER → 2024-11-11 | Outpatient (CLI) | payer MEDICARE, SELFPAY ==
--- NOTE | 2024-11-11 10:46 | BD_ITS ---
PROCEDURE: DEXA BONE DENSITY STUDY REASON FOR EXAM: F, age 69 y/o . Postmenopausal. TECHNIQUE: DEXA scan of the lumbar spine and both hips. COMPARISON: Comparison is made with prior study dated April 24, 2021. FINDINGS: Lumbar Spine (L1-L4): g/cm2 (1.094)/T-score (0 point)/Z-score (2.5) findings are suggestive of normal with a no fracture risk. Left Femur Total: g/cm2 (0.865)/T-score (-0.6)/Z-score (0.8) Left Femoral Neck: g/cm2 (0.666)/T-score (-1.6)/Z-score (0.1) Right Femur Total: g/cm2 (0.863)/T-score (-0.6)/Z-score (0.8) Right Femoral Neck: g/cm2 (0.661)/T-score (-1.7)/Z-score (0.1) The T-Scores on the most recent prior examination were: Lumbar Spine (L1-L4): There has been improvement of bone density since the previous examination. Left Femur Total: Improvement of 1.1%. Right Femur Total: Loss of 3.4%. BD/Dexa Bone Density Study IMPRESSION: The patient is considered osteopenic as outlined below according to World Bennie Organization (WHO) criteria with a moderate fracture risk. There has been improvement of bone density since the previous e xamination. Reading Location: [facility]
== END | disposition home or self-care (01) ==
LOC: OPBD 10:45
PROVIDERS: PCP Family Medicine Geriatric Medicine; Referring Provider Obstetrics & Gynecology Gynecology; Visit Provider Obstetrics & Gynecology Gynecology
DX: Z78.0 Asymptomatic menopausal state (principal)
CPT/HCPCS: 77080

== ENCOUNTER → 2024-11-29 | Outpatient (CLI) | payer MEDICARE, SELFPAY ==
[2024-11-29 20:59] LABS: ALB/GLOB Ratio 1.6 RATIO (0.9-2.4); AST(SGOT) 29 U/L (<=31); Alanine Aminotransfer ALT/SGPT 26 U/L (<=34); Albumin, Serum 4.3 g/dL (3.4-4.8); Alkaline Phosphatase 83 U/L (35-104); BUN 17 mg/dL (4-19); BUN/Creat Ratio 18.1 RATIO (10-20); Creatinine, Serum 0.91 mg/dL (0.70-1.20); EST Glomerular Filtration Rate 68 (>60); Globulin 2.7 g/dL (2.2-4.2); Glucose 112 mg/dL (70-99); Total Bilirubin 0.54 mg/dL (0.00-1.30)
[2024-11-29 22:02] LABS: Anion Gap 14 (5-15); Calcium,Total 9.4 mg/dL (7.6-11.0); Carbon Dioxide 22.7 mmol/L (21.0-32.0); Chloride 101 mmol/L (98-108); Sodium Level 138 mmol/L (133-145)
== END | disposition home or self-care (01) ==
LOC: LAB 15:02
PROVIDERS: PCP Family Medicine Geriatric Medicine; Referring Provider Family Medicine Geriatric Medicine; Visit Provider Family Medicine Geriatric Medicine
DX: E78.5 Hyperlipidemia, unspecified (principal)
CPT/HCPCS: 36415; 80053

== ENCOUNTER → 2025-04-18 | Outpatient (CLI) | payer MEDICARE, SELFPAY ==
[2025-04-18 11:17] LABS: Hematocrit 43.3 % (37-47); Hemoglobin 14.5 g/dL (12.0-15.0); Immature Granulocytes Count 0.020 X10^3/uL (0.0-0.0); Mean Corp Hgb Conc 33.5 g/dL (32-36); Mean Corpuscular Volume 100.9 fL (81-99); Mean Platelet Vol. 11.1 fl (6.2-12.0); NRBC Flagged by Analyzer 0 % (0-5); Platelet Count 248 K/mm3 (150-450); RBC Distribution Width CV 12.2 % (11.6-14.6); RBC Distribution Width SD 46.1 fl (35.1-43.9); Red Blood Count 4.29 M/mm3 (4.2-5.4); White Blood Count 5.2 K/mm3 (4.4-11.0)
[2025-04-18 12:50] LABS: AST(SGOT) 30 U/L (<=31); Alanine Aminotransfer ALT/SGPT 25 U/L (<=34); Albumin, Serum 4.7 g/dL (3.4-4.8); Alkaline Phosphatase 83 U/L (35-104); Anion Gap 15 (5-15); BUN 18 mg/dL (4-19); BUN/Creat Ratio 20.6 RATIO (10-20); Calcium,Total 9.6 mg/dL (7.6-11.0); Carbon Dioxide 22.7 mmol/L (21.0-32.0); Chloride 100 mmol/L (98-108); Globulin 2.8 g/dL (2.2-4.2); Glucose 111 mg/dL (70-99); Potassium 4.1 mmol/L (3.3-5.1)
[2025-04-18 13:06] LABS: Vitamin D,25 Hydroxy 71.5 ng/mL (30-100)
[2025-04-18 19:03] LABS: Xtra Tube Kwok EXTRA TUBE
== END | disposition home or self-care (01) ==
PROVIDERS: PCP Family Medicine Geriatric Medicine; Visit Provider Family Medicine Geriatric Medicine
DX: E55.9 Vitamin D deficiency, unspecified (principal); R53.83 Other fatigue
CPT/HCPCS: 36415; 80053; 82306; 84443; 85025